=== PATIENT | female | born 1945 | race Caucasian/White ===

== ENCOUNTER 2016-12-21 08:41 | Observation (INO) | payer OTHER ==
[~2016-12-21] VITALS: Ht 144.8 cm; Wt 72.6 kg
--- NOTE | 2016-12-21 08:48 | NUR ---
PT KATHRINE C/O LOWER BACK PAIN 05/28. PT STATES THAT SHE WAS DC'D FROM [facility] FOR PNA/SEPSIS AND HIGH BLOOD SUGAR.
--- NOTE | 2016-12-21 08:54 | NUR ---
FAMILY AT BEDSIDE
--- NOTE | 2016-12-21 08:58 | ED NECK/BACK PAIN COMPLAINT ---
History of Present Illness General Chief Complaint: Low Back Pain/Injury Stated Complaint: LOWER BACK PAIN Source: patient, family Exam Limitations: no limitations Vital Signs & Intake/Output Vital Signs & Intake/Output Vital Signs Date Time Temp Pulse Resp B/P B/P Pulse O2 O2 Flow FiO2 Mean Ox Delivery Rate 12/21 1116 66 16 137/65 3 Room Air 12/21 0924 97.0 84 148/90 12/21 0856 Room Air 12/21 0846 98.2 65 16 134/65 97 Allergies Coded Allergies: No Known Allergies (12/21/16) Reconcile Medications Amlodipine Besylate 10 MG TABLET 1 TAB PO DAILY HEART (Reported) Aspirin (Aspirin*) 81 MG TAB.CHEW 1 TAB PO DAILY HEART HEALTH (Reported) Atorvastatin Calcium 40 MG TABLET 1 TAB PO QPM CHOLESTEROL (Reported) Brimonidine Tartrate (Alphagan P) 0.1 % DROPS 1 GTT OPH BID EYE (Reported) Carvedilol 12.5 MG TABLET 1 TAB PO BID HEART (Reported) Famotidine 40 MG TABLET 1 TAB PO DAILY GI (Reported) Fenofibrate Nanocrystallized (Fenofibrate) 48 MG TABLET 1 TAB PO DAILY CHOLESTEROL (Reported) Ferrous Sulfate 325 MG (65 MG IRON) TABLET 1 TAB PO BID SUPPLEMENT (Reported) Fluconazole (Diflucan) 50 MG TABLET 1 TAB PO DAILY ANTIBIOTIC, INFECTION ( Reported) Insulin Aspart, Recombinant (Novolog Flexpen) 100 UNIT/ML INSULN.PEN 3 U SC TID DIABETES (Reported) Insulin Detemir (Levemir Flextouch) 100 UNIT/ML (3 ML) INSULN.PEN 14 U SC QPM DIABETES (Reported) Multivit-Min/FA/Lycopen/Lutein (Centrum Silver Tablet) 0.4 MG-300 MCG-250 MCG TABLET 1 TAB PO DAILY VITAMIN SUPPORT (Reported) Tramadol HCl 50 MG TABLET 1 TAB PO Q8P PRN Severe pain Trazodone HCl 50 MG TABLET 1 TAB PO QPM SLEEP (Reported) Triage Note: PT BIBA C/O LOWER BACK PAIN 10/. PT STATES THAT SHE WAS DC'D FROM [facility]. FOR PNA/SEPSIS AND HIGH BLOOD SUGAR. Triage Nurses Notes Reviewed? yes Onset: Abrupt Duration: hour(s): (1) HPI: 71 year old female with recent discharge from [facility] on Saturday after pneumonia and sepsis who presents with 10/10 back pain from this morning. Her son states she usually can pull herself up and he helps her to the walker but today she couldn't move without severe pain. No trauma. Pain is in the lumbar spine associated with muscle spasm. No weakness or numbness in the extremities. No fever or chills. She was doing well on Saturday after discharge until today. Past History Travel History Traveled to [place] past 21 day No Medical History Any Pertinent Medical History? see below for history Cardiovascular: CHF Respiratory: pneumonia Gastrointestinal: GERD Renal: ATN Endocrine: diabetes Surgical History Surgical History: non-contributory Family History Hx Contributory? No Review of Systems Review of Systems Constitutional: Reports: weakness. Denies: chills, fever. Eyes: Reports: no symptoms. Ears, Nose, Throat, Mouth: Reports: no symptoms. Respiratory: Denies: cough, short of breath, stridor. Cardiovascular: Denies: chest pain. Gastrointestinal/Abdominal: Reports: no symptoms. Musculoskeletal: Reports: back pain, muscle pain, muscle stiffness. Skin: Reports: no symptoms. Neurological/Psychological: Denies: anxiety. All Other Systems: Reviewed and Negative Physical Exam Physical Exam General Appearance: well developed/nourished, alert, awake, anxious, mild distress, moderate distress Head: atraumatic, normal appearance Eyes: Bilateral: normal appearance, PERRL, EOMI. Ears, Nose, Throat, Mouth: hearing grossly normal, moist mucous membrane Neck: normal inspection, supple, full range of motion Respiratory: normal breath sounds, chest non-tender, no respiratory distress Cardiovascular: regular rate/rhythm Peripheral Pulses: 2+ radial (R), 2+ radial (L) Gastrointestinal: normal bowel sounds, soft, non-tender Extremities: non-tender, NORMAL PASSIVE RANGE OF MOTION Straight Leg Raising: Right: Pain at ____ degrees (10). Left: Pain at ____ degrees (10). Neurologic/Psych: awake, alert, oriented x 3 Skin: intact, normal color, cyanosis Progress Differential Diagnosis: cauda equina syn, herniated disc, myofascial strain, pyelo/UTI, sciatica, spinal cord inj, T/L spine injury, vertebral abscess Plan of Care: Orders Procedure Date/time Status Place in observation 12/21 1304 Active Straight Cath 12/21 1043 Active URINALYSIS 05/05 0905 Complete COMPREHENSIVE METABOLIC PANEL 12/21 904 Complete CBC WITHOUT DIFFERENTIAL 12/21 904 Complete EKG 12/21 904 Active Laboratory Tests 12/21/16 1131: Urinalysis MOD H, Urine Color YEL, Urine Clarity HAZY H, Urine pH 6.0, Ur Specific [place] 1.020, Urine Protein 100 H, Urine Ketones NEG, Urine Nitrite NEG, Urine Bilirubin NEG, Urine Urobilinogen 0.2, Ur Leukocyte Esterase NEG, Ur Microscopic SEDIMENT EXAMINED, Urine RBC 1-3, Urine WBC 3-5 H, Urine Bacteria MOD H, Urine Hemoglobin TRACE-INTACT, Urine Glucose 100 H 12/21/16 0937: Anion Gap 13, Estimated GFR 23 L, BUN/Creatinine Ratio 24.3, Glucose 154 H, Calcium 8.8, Total Bilirubin 0.4, AST 19, ALT 37, Alkaline Phosphatase 74, Total Protein 6.2 L, Albumin 3.1 L, Globulin 3.1, Albumin/Globulin Ratio 1.0 L, CBC w Diff NO MAN DIFF REQ, RBC 3.69 L, MCV 83.0, MCH 27.9, RDW 16.2 H, MPV 8.8, Gran % 81.9 H, Lymphocytes % 9.1 L, Monocytes % 8.0, Eosinophils % 0.7, Basophils % 0.3, Absolute Granulocytes 6.4, Absolute Lymphocytes 0.7 L, Absolute Monocytes 0.6, Absolute Eosinophils 0.1, Absolute Basophils 0, PUBS MCHC 33.6 Patient with intractable pain despite iv morphine and valium administration. CT scan does not show any acute findings but do show severe degenerative changes. She is unable to bear weight at this point and will require physical therapy and short term rehab. (KEO BAR,DEMARIO) Diagnostic Imaging: Viewed by Me: CT Scan. Discussed w/RAD: CT Scan. Radiology Impression: PATIENT: SHAZIA BEAR PRESENT AGE: 71 PATIENT ACCOUNT NO: [id number] : 44 LOCATION: [facility] ORDERING PHYSICIAN: DEMARIO CROWLEY MD SERVICE DATE: 12/21/16 EXAM TYPE: CAT - CT LUMB SPINE WO IV CONTRAST EXAMINATION: CT LUMBAR SPINE WITHOUT CONTRAST CLINICAL INFORMATION: Severe low back pain, sudden onset. COMPARISON: None. TECHNIQUE: Helical non-contrast CT images were obtained through the lumbar spine and 1.25 and 2.5 mm axial reconstructions were reviewed along with sagittal and coronal MPRs. DLP: 962.6 mGy-cm FINDINGS: There is a rotatory levoscoliosis with the apex at L3-L4. There is a grade 2, 8 mm anterolisthesis of L5 on S1 with marked narrowing of intervertebral disc height at this level. There is a 5 mm grade 1 anterolisthesis of L4 on L5 with marked narrowing of intervertebral disc height with vacuum changes. There is a mild retrolisthesis of L1 on L2. Intervertebral disc heights are narrowed at T10-T11 and T11-T12 and there may be partial fusion of the vertebral bodies at these levels. There is narrowing of intervertebral disc height with severe degenerative endplate contour changes and sclerosis at L1-L2. Narrowing of intervertebral disc height is also demonstrated posteriorly at L2-L3 with milder endplate changes. There is also narrowing of intervertebral disc height at L3-L4 and L4-L5 with vacuum changes. There are no acute compression fractures. Overall, bone mineralization is diffusely decreased. There are moderate atheromatous calcifications of the aorta. There is no aortic aneurysm. The sacroiliac joints appear intact. SPINAL LEVELS: T11-T12: As described above there is partial fusion of the vertebral bodies, particularly toward the left. There is no central stenosis. There is mild left foraminal narrowing. T12-L1: There is mild facet arthropathy. There is a posterior disc osteophyte complex. There is no central stenosis. L1-L2: There is a prominent posterior disc osteophyte complex extending into the bilateral neural foramina. There is mild narrowing of the spinal canal from the retrolisthesis. There is mild bilateral foraminal narrowing. There is moderate facet arthropathy. L2-L3: There is kkvs-ip-ygpwmfcc facet arthropathy with ligamenta flava hypertrophy. There is a broad-based posterior disc protrusion extending into the neural foramina bilaterally. There is mild central stenosis. L3-L4: There is a diffuse disc bulge which is more prominent laterally on the left. There is bilateral facet arthropathy. There is ligamenta flava hypertrophy. There is likely impingement on the extraforaminal left L3 nerve root. There is mild central stenosis. L4-L5: There is severe bilateral facet arthropathy, worse on the left. There is narrowing of the subarticular recesses bilaterally. There is unroofing of the disc as a result of the anterolisthesis and there are bilateral foraminal disc protrusions with impingement on the exiting L4 nerve roots. There is npauiguf-vk-cxtifm central stenosis. L5-S1: There is severe bilateral facet arthropathic changes. There are no partes interarticulares defects. There is unroofing of the disc as a result of the anterolisthesis and there is left greater than right foraminal narrowing with impingement on the exiting L5 nerve roots. There is no central stenosis. IMPRESSION: 1. There is severe spondylosis at L1-L2 with endplate contour changes and sclerosis. The findings are most consistent with severe degenerative spondylosis. 2. There are anterolistheses of L4 on L5 and L5 on S1 with bilateral foraminal narrowing at both these levels with exiting nerve root impingement. 3. There is gtuggwqh-ym-ealnts central stenosis at L4-L5. 4. There are milder changes at multiple other levels as described above. There is a rotatory levoscoliosis. 5. There are no acute fractures. DICTATED BY: ASHISH GREEN MD DATE/TIME DICTATED:12/21/161034 SALES OPERATIONS SPECIALIST:LEONARDO DATE/TIME TRANSCRIBED:12/21/161034 CONFIDENTIAL, DO NOT COPY WITHOUT APPROPRIATE AUTHORIZATION. <Electronically signed in Other Vendor System> SIGNED BY: ASHISH GREEN MD 12/21/16 1118 Initial ED EKG: NSR Departure Departure Time of Disposition: 1310 Disposition: STILL A PATIENT Condition: Stable Clinical Impression Primary Impression: Intractable low back pain Referrals: UNKNOWN Departure Forms: Customer Survey General Discharge Information Prescriptions: Current Visit Scripts Tramadol HCl 1 TAB PO Q8P PRN Severe pain #15 TAB Observation Note Spoke With: ARBEN WHITMAN MD Physician Advisor Notified: BYRCE BAR,WEI Parekh Place Patient In: Non-ED OBS Care Area Rationale for Observation: My rational for observation is as follows [IV PAIN CONTROL, PHYSICAL THERAPY EVALUATION, MONITOR RENAL FUNCTION, MONITOR H/H, OBTAIN OLD RECORDS FROM [facility], POSSIBLE SHORT TERM REHAB PLACEMENT].
--- NOTE | 2016-12-21 09:00 | NUR ---
DR CROWLEY AT BEDSIDE FOR EVALUATION
--- NOTE | 2016-12-21 09:15 | NUR ---
PT CHANGED INTO GOWN AND CLEANED.. PT HAD A LARGE BM WITH SOFT BROWN STOOL
--- NOTE | 2016-12-21 09:40 | NUR ---
IV EST #20RH PT MEDICATED FOR PAIN 05/28 PER [facility] DRAWN ANED SENT TO THE LAB [facility]
[2016-12-21 09:44] LABS: ABSOLUTE BASOPHIL COUNT 0 /CUMM (0.0-0.2); ABSOLUTE EOSINOPHIL COUNT 0.1 /CUMM (0.0-0.7); ABSOLUTE GRANULOCYTE CT 6.4 /CUMM (1.4-6.5); ABSOLUTE LYMPH COUNT 0.7 /CUMM (1.2-3.4); ABSOLUTE MONOCYTE COUNT 0.6 /CUMM (0.10-0.60); BASOPHIL % 0.3 % (0.0-2.0); EOSINOPHIL % 0.7 % (0-5); GRANULOCYTE % 81.9 % (42.2-75.2); HEMATOCRIT 30.6 % (37-47); MEAN CORPUSCULAR HGB 27.9 PG (27.0-31.0); MEAN CORPUSCULAR HGB CONC 33.6 G/DL (33.0-37.0); MEAN PLATELET VOLUME 8.8 FL (7.4-10.4); PLATELET COUNT 210 /CUMM (130-400); RBC DISTRIBUTION WIDTH 16.2 % (11.5-14.5); RED BLOOD CELL CT 3.69 /CUMM (4.20-5.40); WHITE BLOOD CELL COUNT 7.9 /CUMM (4.8-10.8)
[2016-12-21] MEDS ORDERED: AMLODIPINE BESY10 M1 PO (09:44)
[2016-12-21] MEDS ORDERED: CARVEDILOL12.5 M1 PO (09:45)
[2016-12-21] MEDS ORDERED: FAMOTIDINE40 M1 PO (09:45)
[2016-12-21] MEDS ORDERED: DIFLUCAN50 MG PO (09:46)
[2016-12-21] MEDS ORDERED: TRAZODONE HCL50 M1 PO (09:47)
[2016-12-21] MEDS ORDERED: NOVOLOG FL100 UNIT/1 SC (09:47)
[2016-12-21] MEDS ORDERED: LEVEMIR FL100 UNIT/1 SC (09:48)
[2016-12-21] MEDS ORDERED: ALPHAGAN P5 M1 OPH (09:48)
[2016-12-21] MEDS ORDERED: ASPIRIN81 M4 PO (09:48)
[2016-12-21] MEDS ORDERED: FENOFIBRATE48 M1 PO (09:49)
[2016-12-21] MEDS ORDERED: ATORVASTATIN CA40 M1 PO (09:49)
[2016-12-21] MEDS ORDERED: CENTRUM SILVER1 EAC3 PO (09:49)
[2016-12-21] MEDS ORDERED: FERROUS SULFAT325 M3 PO (09:50)
--- NOTE | 2016-12-21 11:11 | NUR ---
FAMILY AT BEDSIDE
--- NOTE | 2016-12-21 11:11 | NUR ---
PT MEDICATED PER [facility] WITH VALIUM AND FLUIDS RUNNING PER [facility]
--- NOTE | 2016-12-21 11:18 | CT SCAN REPORT ---
EXAMINATION: CT LUMBAR SPINE WITHOUT CONTRAST CLINICAL INFORMATION: Severe low back pain, sudden onset. COMPARISON: None. TECHNIQUE: Helical non-contrast CT images were obtained through the lumbar spine and 1.25 and 2.5 mm axial reconstructions were reviewed along with sagittal and coronal MPRs. DLP: 962.6 mGy-cm FINDINGS: There is a rotatory levoscoliosis with the apex at L3-L4. There is a grade 2, 8 mm anterolisthesis of L5 on S1 with marked narrowing of intervertebral disc height at this level. There is a 5 mm grade 1 anterolisthesis of L4 on L5 with marked narrowing of intervertebral disc height with vacuum changes. There is a mild retrolisthesis of L1 on L2. Intervertebral disc heights are narrowed at T10-T11 and T11-T12 and there may be partial fusion of the vertebral bodies at these levels. There is narrowing of intervertebral disc height with severe degenerative endplate contour changes and sclerosis at L1-L2. Narrowing of intervertebral disc height is also demonstrated posteriorly at L2-L3 with milder endplate changes. There is also narrowing of intervertebral disc height at L3-L4 and L4-L5 with vacuum changes. There are no acute compression fractures. Overall, bone mineralization is diffusely decreased. There are moderate atheromatous calcifications of the aorta. There is no aortic aneurysm. The sacroiliac joints appear intact. SPINAL LEVELS: T11-T12: As described above there is partial fusion of the vertebral bodies, particularly toward the left. There is no central stenosis. There is mild left foraminal narrowing. T12-L1: There is mild facet arthropathy. There is a posterior disc osteophyte complex. There is no central stenosis. L1-L2: There is a prominent posterior disc osteophyte complex extending into the bilateral neural foramina. There is mild narrowing of the spinal canal from the retrolisthesis. There is mild bilateral foraminal narrowing. There is moderate facet arthropathy. L2-L3: There is sede-ye-yrkaqhcf facet arthropathy with ligamenta flava hypertrophy. There is a broad-based posterior disc protrusion extending into the neural foramina bilaterally. There is mild central stenosis. L3-L4: There is a diffuse disc bulge which is more prominent laterally on the left. There is bilateral facet arthropathy. There is ligamenta flava hypertrophy. There is likely impingement on the extraforaminal left L3 nerve root. There is mild central stenosis. L4-L5: There is severe bilateral facet arthropathy, worse on the left. There is narrowing of the subarticular recesses bilaterally. There is unroofing of the disc as a result of the anterolisthesis and there are bilateral foraminal disc protrusions with impingement on the exiting L4 nerve roots. There is gmlbimfi-md-apcfvg central stenosis. L5-S1: There is severe bilateral facet arthropathic changes. There are no partes interarticulares defects. There is unroofing of the disc as a result of the anterolisthesis and there is left greater than right foraminal narrowing with impingement on the exiting L5 nerve roots. There is no central stenosis. IMPRESSION: 1. There is severe spondylosis at L1-L2 with endplate contour changes and sclerosis. The findings are most consistent with severe degenerative spondylosis. 2. There are anterolistheses of L4 on L5 and L5 on S1 with bilateral foraminal narrowing at both these levels with exiting nerve root impingement. 3. There is dprukqaq-ap-zctkpe central stenosis at L4-L5. 4. There are milder changes at multiple other levels as described above. There is a rotatory levoscoliosis. 5. There are no acute fractures.
--- NOTE | 2016-12-21 11:29 | NUR ---
PT STRATIGHT CATH FOR URINE SAMPLE OUT PUT 200
--- NOTE | 2016-12-21 13:06 | NUR ---
CASE MANAGEMENT AT BEDSIDE
--- NOTE | 2016-12-21 13:40 | History & Physical ---
RJ NUNEZ MD 12/21/16 9910: General Information and HPI MD Statement: I have seen and personally examined GENA BEAR and documented this H&P. The patient is a 71 year old F who presented with a patient stated chief complaint of [intractable back pain]. Source of Information: patient History of Present Illness: This is Gena Bear a 71 y.o. female with history of DCHF, diabetes mellitus, dumping syndrome, gastroparesis, GERD, hyperlipidemia, hypertension, macular degeneration, pulmonary hypertension,(RVP of 36 mm hG) Hamilton esophagus, upper GI bleed, anemia last admitted April of 2016 for GI bleed and then again admitted at [facility] from December 07 till 12/18/2016 for community-acquired pneumonia, sepsis, encephalopathy, fungal UTI (with the tapering dose of fluconazole left with 4 more days that is till 12/23/2016 ). The patient was discharged home on 12/18/2016. The patient was doing fine until last night when she started having persistent intractable back pain which started suddenly. The patient denies any history of trauma fall or any weakness. She does not exhibit any leg weakness. At baseline she ambulates with a walker. The patient describes the pain as 10 on 10, associated with muscle spasms which is intermittent, no complaints of urinary or stool incontinence. She does appreciate bilateral lower extremity numbness and tingling for which she attributes to her diabetic neuropathy. After reviewing the patient's discharge summary at the [facility] and was found that the patient had a baseline creatinine of 2.23 secondary to ATN at the time of discharge(with the peak of creatinine of 5.56 during admission), the patient was discharged with instructions to take bicarbonate pills and to follow with Dr. Rodriguez in 1 week. The patient is left with 5 days of fluconazole therapy(last dated 12/23/2016) for her fungal UTI The patient is currently residing with her son who lives in [place] and today the patient was brought to the emergency emergency department [facility]. Regarding her rest of the care and her primary care physician she has always been worked up at [facility]. Allergies/Medications Allergies: Coded Allergies: No Known Allergies (12/21/16) Home Med list Amlodipine Besylate 10 MG TABLET 1 TAB PO DAILY HEART (Reported) Aspirin (Aspirin*) 81 MG TAB.CHEW 1 TAB PO DAILY HEART HEALTH (Reported) Atorvastatin Calcium 40 MG TABLET 1 TAB PO QPM CHOLESTEROL (Reported) Brimonidine Tartrate (Alphagan P) 0.1 % DROPS 1 GTT OPH BID EYE (Reported) Carvedilol 12.5 MG TABLET 1 TAB PO BID HEART (Reported) Famotidine 40 MG TABLET 1 TAB PO DAILY GI (Reported) Fenofibrate Nanocrystallized (Fenofibrate) 48 MG TABLET 1 TAB PO DAILY CHOLESTEROL (Reported) Ferrous Sulfate 325 MG (65 MG IRON) TABLET 1 TAB PO BID SUPPLEMENT (Reported) Fluconazole (Diflucan) 50 MG TABLET 1 TAB PO DAILY ANTIBIOTIC, INFECTION ( Reported) Insulin Aspart, Recombinant (Novolog Flexpen) 100 UNIT/ML INSULN.PEN 3 U SC TID DIABETES (Reported) Insulin Detemir (Levemir Flextouch) 100 UNIT/ML (3 ML) INSULN.PEN 14 U SC QPM DIABETES (Reported) Multivit-Min/FA/Lycopen/Lutein (Centrum Silver Tablet) 0.4 MG-300 MCG-250 MCG TABLET 1 TAB PO DAILY VITAMIN SUPPORT (Reported) Trazodone HCl 50 MG TABLET 1 TAB PO QPM SLEEP (Reported) Past History Travel History Traveled to [place] past 21 day No Medical History Neurological: NONE Cardiovascular: CHF Gastrointestinal: GERD, upper GI bleed Renal: acute tubular necrosis Psychiatric: NONE Endocrine: diabetes Surgical History Surgical History: none Past Family/Social History Family History Relations & Conditions if any MOTHER Relation not specified for: FH: diabetes mellitus FH: hypertension Psychosocial History Where do you live? Home Who Do You Live With? child Services at Home: None Primary Language: Serbian Smoking Status: Never Smoked ETOH Use: denies use Review of Systems Review of Systems Constitutional: Reports: see HPI. EENTM: Reports: see HPI. Cardiovascular: Reports: see HPI. Respiratory: Reports: see HPI. GI: Reports: see HPI. Denies: constipation, diarrhea, distention, bowel incontinence. Genitourinary: Denies: discharge, dysuria, frequency, hematuria. Musculoskeletal: Denies: back pain, gout, joint pain. Skin: Denies: change in skin color, change in hair/nails, dryness, erythema. Neurological/Psychological: Denies: cognitive dysfunction, confusion, depressed, dementia, emotional problems, headache. Hematologic/Endocrine: Denies: bruising, bleeding. Exam & Diagnostic Data Last 24 Hrs of Vital Signs/I&O Vital Signs Date Time Temp Pulse Resp B/P B/P Pulse O2 O2 Flow FiO2 Mean Ox Delivery Rate 12/21 1452 97.2 70 20 131/62 97 Room Air 12/21 1116 66 16 137/65 3 Room Air 12/21 0924 97.0 84 148/90 12/21 0856 Room Air 12/21 0846 98.2 65 16 134/65 97 Intake & Output 12/21 1600 12/21 0800 05 0000 Intake Total 500 Output Total 200 Balance 300 Intake, IV 500 Output, Urine 200 Patient 160 lb Weight Weight Reported by Patient Measurement Method Physical Exam General Appearance Alert, Oriented X3, Moderate Distress Skin No Rashes, No Breakdown Skin Temp/Moisture Exam: Warm/Dry Sepsis Skin Exam (color): Normal for Ethnicity HEENT Atraumatic Neck Supple Lymphatic Axillary nl, Cervical nl Cardiovascular Normal S1, Normal S2, No Murmurs Lungs Clear to Auscultation, Normal Air Movement Abdomen Soft, No Tenderness Neurological Normal Speech, Strength at 5/5 X4 Ext, Normal Tone, Sensation Intact Extremities No Cyanosis, No Edema Assessment/Plan Assessment: This is Gena Bear a 71 y.o. female with history of DCHF, diabetes mellitus, dumping syndrome, gastroparesis, GERD, hyperlipidemia, hypertension, macular degeneration, pulmonary hypertension,(RVP of 36 mm hG) Hamilton esophagus, upper GI bleed, anemia who presents to the [facility] with persistent intractable low back pain that started 12 hours back in the absence of any trauma or mechanical fall. Vitals: 137/65, 66,16,95 % r.A,Afebrile Labs: 10.9,WBC of 7.9,na,143,K 4.2,Cl 110,Creatinie 2.1(baseline Creatniine 2.2),GFR 51,BUN 51 EKG showed normal sinus rhythm Lumbar spine did not show any acute changes: And showed 1. Severe spondylosis at L1-L2 2. Bilateral foraminotomy narrowing at L4-L5 and S1 3. Moderate to severe central stenosis at L4-L5 4. No acute fractures Assessment 1. Intractable back pain: Likelihood of back pain is most likely muscular skeletal in origin with muscle spasms., Even though there was no evidence of any trauma. But considering the patient recently recovered from an acute infection and encephalopathy the possibility of ostium mellitus to the vertebra can also be considered even though the possibility is usually low considering no white count and no fever. 2. History of pulmonary hypertension with right ventricular pressure 38 Bre meter of mercury on the last transthoracic echocardiogram in April 2016 3. History of heart failure with preserved ejection fraction, stage I diastolic dysfunction with ejection pressure 60% on echocardiogram in April 2016 4. History of gerd 5. History of esophagitis and GI bleed and valencia occult blood positive positive stools 6. History of diabetes mellitus with last hemoglobin A1c of 15. currently on insulin therapy 7. History of hypertension 8. History of hyperlipidemia 9. Newly diagnosed ATN, on the last admission at [facility], with the new baseline creatinine of 2.2 and in the setting of positive p-ANCA. The positive p-ANCA found at the [facility] could be a nonspecific finding but considering ATN pausi -immune nephrits would be one of the differentials. This can be worked up as an outpatient Plan Admit the patient to general medicine floor for 23 observation For the back pain we will control with IV Dilaudid 0.5 mg every 4 when necessary and as well as Flexeril for muscle spasm .avoid morphine considering nephrotoxic Physical therapy in the morning We will check blood cultures 2 and urine cultures as mentioned above Check lactic acid levels Nephrology consult in the morning(to be noted that the patient was scheduled and was asked to follow with Dr. Rodriguez in the next week.Will co/w 325 TID bicarbonate pills DVT prophylaxis with subcutaneous heparin Patient is full code Pain pathways Consistent carbohydrate diet NovoLog sliding scale and Levemir for glucose control Continue with other home medications cHECK ESR IN AM Hydrate with 1/2 NS as elevated chloride and Sodium.Switch to D5 1/2 NS in am depending on the electrolytes results in am As Ranked By This Provider Problem List: 1. Intractable low back pain Core Measures/Miscellaneous Acute Coronary Syndrome ACS Diagnosis: No Cerebrovascular Accident CVA/TIA Diagnosis: No Congestive Heart Failure CHF Diagnosis: No Venous Thromboembolism VTE Risk Factors: Acute medical illness, Age > 40 [facility] prophylaxis d/t: No contraindications No VTE Pharm Prophylaxis d/t: No contraindications VTE Diagnosis: No VTE Type: NONE VTE Confirmed by (Test): NONE Severe Sepsis Severe Sepsis Present: No Septic Shock Septic Shock Present: No Miscellaneous Documentation Attending Case Discussed With: ANTONETTE BAR,ARBEN Primary Care Physician: ELSIE PIERRE MD Patient sees these Specialists none Level of Patient Care: General Medicine ENRIQUETA MACHUCA 12/21/16 1515: Attending MD Review Statement Attending Statement Attending MD Statement: examined this patient, discuss w/resident/PA/YOUTUBER, agreed w/resident/PA/YOUTUBER, discussed with family, reviewed EMR data (avail), discussed with nursing, discussed with case mgmt, reviewed images, amended to note Attending Assessment/Plan: patient came with intractable back pain with CT scan shows moderate to severe spinal stenosis. Labs unremarkable except Cr 2.1 recovering from her acute injury recently sustained. Patient admitted to gen/med for pain control, resume home meds. gi/dvt prophyalxis
--- NOTE | 2016-12-21 14:17 | NUR ---
BED ASSIGNMENT [id number]
--- NOTE | 2016-12-21 14:52 | NUR ---
PT MEDICATED WITH IV DILAUDID PER eMAR FOR 10 PAIN. VSS
--- NOTE | 2016-12-21 15:11 | NUR ---
CARE ASSUMED BY THIS RN NOW.
--- NOTE | 2016-12-21 15:16 | NUR ---
REPORT GIVEN TO EDGARDO ALCANTARA
--- NOTE | 2016-12-21 15:17 | NUR ---
DIST BOOKED WITH SHAZIA
--- NOTE | 2016-12-21 15:55 | NUR ---
SPOKE WITH DISTRIBUTION. PT TO BE BROUGHT UP NEXT.
--- NOTE | 2016-12-21 16:40 | NUR ---
PATIENT ARRIVED TO UNIT FROM ER. ADMITTING DX INTRACTABLE BACK PAIN. PATIENT IS ALERT AND ORIENTATED X3. VSS. CARDIOPULMONARY STABLE. C/O LOWER BACK PAIN 5/10. PER PATIENT "BACK ONLY HURTS WHEN BEING MOVED." PATIENT LYING FLAT. INCONTINET OF URINE ON ARRIVAL. GINNY LOWER EXTREMITIES 1+ EDEMA. ORIENTATED TO ROOM AND CALL LIGHT. SON AT BEDSIDE. WILL FOLLOW PLAN OF CARE.
[2016-12-21 16:53] VITALS: BP 126/70
[2016-12-22 06:38] VITALS: BP 146/70
--- NOTE | 2016-12-22 07:57 | PN- Housestaff ---
See Addendum Subjective Follow-up For: back pain Subjective: pt seen today, reports no pain. can probably be discharged today had an extensive discussion with family regarding obs vs admit as family was concerned about the cost they will incur being under obs. pt's son was also demanding that we know exactly why she has the back pain and does not want her to go home until we figure it out. pt and her sister understand that the role of hospitalization is to rule out serious causes and further workup can be done as outpatient. pt would like tramadol to go home with. she does not like percocet. Review of Systems Constitutional: Reports: see HPI. Objective Last 24 Hrs of Vital Signs/I&O Vital Signs Date Time Temp Pulse Resp B/P B/P Pulse O2 O2 Flow FiO2 Mean Ox Delivery Rate 12/22 0837 99.0 66 20 146/70 / 0836 99.0 66 20 146/70 / 0638 99.0 66 20 146/70 97 05/05 2252 98.3 18 94 Room Air 12/21 2205 70 128/64 05/05 1653 98.3 69 20 126/70 94 Room Air 05/05 1452 97.2 70 20 131/62 97 Room Air Intake & Output / 1600 / 0800 05/ 0000 Intake Total 840 1000 Output Total Balance 840 1000 Intake, IV 600 600 Intake, Oral 240 400 Patient 72.575 kg Weight Weight Reported by Patient Measurement Method Physical Exam General Appearance: Alert, Oriented X3, Cooperative, No Acute Distress Cardiovascular: Regular Rate, Normal S1, Normal S2 Lungs: Clear to Auscultation, Normal Air Movement Abdomen: Normal Bowel Sounds, Soft, No Tenderness Neurological: Normal Speech, Strength at 5/5 X4 Ext Current Medications: Current Medications Sig/Nawaf Start time Last Medication Dose Route Stop Time Status Admin Acetaminophen 650 MG Q6P PRN 12/21 1345 AC PO Amlodipine Besylate 10 MG DAILY 12/22 1000 AC 12/22 PO 0837 Aspirin 81 MG DAILY 12/22 1000 AC / PO 0836 Atorvastatin Calcium 40 MG QPM 12/21 2200 AC 12/21 PO 2202 Brimonidine Tartrate 1 GTT BID 12/21 220 AC 12/22 OPH 0836 Carvedilol 12.5 MG BID 12/21 220 AC 12/22 PO 0836 Cyclobenzaprine HCl 10 MG TID PRN 12/21 1400 AC PO Famotidine 20 MG DAILY 12/22 1000 AC 12/22 PO 0837 Fenofibrate 48 MG DAILY 12/22 1000 AC 12/22 PO 0837 Ferrous Sulfate 325 MG BID 12/21 2200 AC 12/22 PO 0837 Fluconazole 50 MG AT BEDTIME 12/21 2200 AC 12/21 PO 05 0000 2202 Heparin Sodium 5,000 UNIT Q8 12/21 220 AC 12/22 (Porcine) SC 0545 Hydromorphone HCl 0 .STK-MED ONE 12/21 1453 DC .ROUTE Hydromorphone HCl 0.5 MG Q4P PRN 12/21 1345 AC 12/21 IV 1451 Insulin Aspart 0 TIDAC 12/21 1700 AC 12/21 SC 1719 Insulin Detemir 14 UNITS AT BEDTIME 12/21 220 AC 12/21 SC 2201 Ketorolac 15 MG Q6P PRN 12/21 1345 DC Tromethamine IV Oxycodone/ 1 TAB Q6P PRN 12/22 0745 AC Acetaminophen PO Patient Medication 1 UNIT ONE NR 12/21 1645 DC Teaching ED 12/21 1700 Sodium Bicarbonate 325 MG TID 12/22 1000 AC 12/22 PO 1104 Sodium Chloride 1,000 ML Q13H 12/21 2145 AC 12/22 IV 12/22 2344 1104 Sodium Chloride 1,000 ML Q13H 12/21 1600 DC 12/21 IV 12/22 1759 1714 Trazodone HCl 50 MG QPM 12/21 220 AC 12/21 PO 2201 Last 24 Hrs of Lab/David Results Last 24 Hrs of Labs/Mics: Laboratory Tests 12/22/16 0655: Anion Gap 12, Estimated GFR 24 L, BUN/Creatinine Ratio 21.5, CBC w Diff NO MAN DIFF REQ, RBC 3.26 L, MCV 83.2, MCH 28.2, RDW 15.5 H, MPV 9.4, Gran % 69.5, Lymphocytes % 17.2 L, Monocytes % 9.4 H, Eosinophils % 2.9, Basophils % 1.0, Absolute Granulocytes 3.8, Absolute Lymphocytes 1.0 L, Absolute Monocytes 0.5, Absolute Eosinophils 0.2, Absolute Basophils 0.1, PUBS MCHC 33.9, ESR Westergren 77 H Microbiology 12/21 1899 BLOOD: Blood Culture - RECD 12/21 1899 BLOOD: Blood Culture - RECD Assessment/Plan Assessment: This is Doris Martinez a 71 y.o. female with history of DCHF, diabetes mellitus, dumping syndrome, gastroparesis, GERD, hyperlipidemia, hypertension, macular degeneration, pulmonary hypertension,(RVP of 36 mm hG) Hamilton esophagus, upper GI bleed, anemia who presents to the [facility] with persistent intractable low back pain that started 12 hours back in the absence of any trauma or mechanical fall. Vitals: 137/65, 66,16,95 % r.A,Afebrile Labs: 10.9,WBC of 7.9,na,143,K 4.2,Cl 110,Creatinie 2.1(baseline Creatniine 2.2),GFR 51,BUN 51 EKG showed normal sinus rhythm Lumbar spine did not show any acute changes: And showed 1. Severe spondylosis at L1-L2 2. Bilateral foraminotomy narrowing at L4-L5 and S1 3. Moderate to severe central stenosis at L4-L5 4. No acute fractures Assessment 1. Intractable back pain: Likelihood of back pain is most likely muscular skeletal in origin with muscle spasms. Even though there was no evidence of any trauma. But considering the patient recently recovered from an acute infection and encephalopathy the possibility of osteomyelitis to the vertebra can also be considered even though the possibility is usually low considering no white count and no fever. 2. History of pulmonary hypertension with right ventricular pressure 38 mm hg on the last transthoracic echocardiogram in April 2016 3. History of heart failure with preserved ejection fraction, stage I diastolic dysfunction with ejection pressure 60% on echocardiogram in April 2016 4. History of gerd 5. History of esophagitis and GI bleed and valencia occult blood positive positive stools 6. History of diabetes mellitus with last hemoglobin A1c of 15. currently on insulin therapy 7. History of hypertension 8. History of hyperlipidemia 9. Newly diagnosed ATN, on the last admission at [facility], with the new baseline creatinine of 2.2 and in the setting of positive p-ANCA. The positive p-ANCA found at the [facility] could be a nonspecific finding but considering ATN pausi -immune nephrits would be one of the differentials. This can be worked up as an outpatient Plan Observe patient for 24 hrs For the back pain we will control with IV Dilaudid 0.5 mg every 4 when necessary and as well as Flexeril for muscle spasm .avoid morphine considering nephrotoxic Physical therapy done We will check blood cultures 2 and urine cultures NovoLog sliding scale and Levemir for glucose control Continue with other home medications DVT prophylaxis with subcutaneous heparin Patient is full code Pain pathways Consistent carbohydrate diet Problem List: 1. Intractable low back pain Pain Ratin Pain Location: none Pain Goal: Remain pain free Pain Plan: dilaudid Tomorrow's Labs & Rationales: none DVT/Prophylaxis: mechanical, pharmacological
[2016-12-22 08:37] VITALS: BP 146/70
[2016-12-22 09:01] LABS: ABSOLUTE BASOPHIL COUNT 0.1 /CUMM (0.0-0.2); ABSOLUTE EOSINOPHIL COUNT 0.2 /CUMM (0.0-0.7); ABSOLUTE GRANULOCYTE CT 3.8 /CUMM (1.4-6.5); ABSOLUTE MONOCYTE COUNT 0.5 /CUMM (0.10-0.60); EOSINOPHIL % 2.9 % (0-5); GRANULOCYTE % 69.5 % (42.2-75.2); HEMATOCRIT 27.2 % (37-47); MEAN CORPUSCULAR HGB 28.2 PG (27.0-31.0); MEAN CORPUSCULAR HGB CONC 33.9 G/DL (33.0-37.0); MEAN CORPUSCULAR VOLUME 83.2 FL (81.0-99.0); MEAN PLATELET VOLUME 9.4 FL (7.4-10.4); PLATELET COUNT 181 /CUMM (130-400); RBC DISTRIBUTION WIDTH 15.5 % (11.5-14.5); RED BLOOD CELL CT 3.26 /CUMM (4.20-5.40); WHITE BLOOD CELL COUNT 5.5 /CUMM (4.8-10.8)
[2016-12-22] MEDS ORDERED: TRAMADOL HCL50 M1 PO (12:40)
--- NOTE | 2016-12-22 12:43 | Patient Discharge Instructions ---
Discharge Instructions General Discharge Information You were seen/treated for: Back pain Special Instructions: Please follow up with PCP in 1 week. Diet Continue normal diet: Yes Recommended Diet: Diabetic Activity Full Activity/No Limits: Yes Acute Coronary Syndrome Inclusion Criteria At DC or during hospital stay patient has or had the following: ACS DIAGNOSIS No Discharge Core Measures Meds if any: Prescribed or Continued at Discharge Meds if any: NOT Prescribed or Continued at Discharge Congestive Heart Failure Inclusion Criteria At DC or during hospital stay patient has or had the following: CHF DIAGNOSIS No Discharge Core Measures Meds if any: Prescribed or Continued at Discharge Meds if any: NOT Prescribed or Continued at Discharge Cerebrovascular accident Inclusion Criteria At DC or during hospital stay patient has or had the following: CVA/TIA Diagnosis No Discharge Core Measures Meds if any: Prescribed or Continued at Discharge Meds if any: NOT Prescribed or Continued at Discharge Venous thromboembolism Inclusion Criteria VTE Diagnosis No VTE Type NONE VTE Confirmed by (Test) NONE Discharge Core Measures - Per Current guidelines, there needs to be overlap - treatment for the first 5 days of Warfarin therapy. - If discharged on Warfarin prior to 5 days of - overlap therapy, the patient will need to be - assessed for post discharge needs including - *Post discharge parental anticoagulation - *Warfarin and/or parental anticoagulation education - *Follow up date to check INR post discharge At least 5 days overlap therapy as Inpatient No Meds if any: Prescribed or Continued at Discharge Note: Overlap Therapy is Warfarin and Anticoagulant Meds if any: NOT Prescribed or Continued at Discharge
== END 2016-12-22 14:47 ==
LOC: ERH 08:41 → ERHI 13:04 → ENRESERV 14:14 → 2NB 15:21 → ENPENDDIS 12-22 13:30 → 2NB 12-22 14:47
PROVIDERS: Emergency Medicine; Internal Medicine Nephrology; ADMIT Internal Medicine
DX: M54.5 Low back pain (principal); N17.0 Acute kidney failure with tubular necrosis; K91.1 Postgastric surgery syndromes; K31.84 Gastroparesis; K21.9 Gastro-esophageal reflux disease without esophagitis; E78.5 Hyperlipidemia, unspecified; I11.0 Hypertensive heart disease with heart failure; I50.32 Chronic diastolic (congestive) heart failure; K22.70 Barrett's esophagus without dysplasia; H35.30 Unspecified macular degeneration; I27.2 Other secondary pulmonary hypertension; D64.9 Anemia, unspecified
CPT/HCPCS: 6040; 36415; 81001; 82436; 87040; 87086; 93005; 93010; 96374; 96375; 96376; 97116-GP; 97161-GP; 97530-GP; G0378; J1644; J3360; J3490; J7040

== ENCOUNTER 2017-01-26 20:44 | Emergency (ER) | payer OTHER ==
[~2017-01-26] VITALS: Ht 162.6 cm; Wt 99.8 kg
[~2017-01-26 20:44] MED LIST: ALPHAGAN P5 M1 OPH; AMLODIPINE BESY10 M1 PO; ASPIRIN81 M4 PO; ATORVASTATIN CA40 M1 PO; CARVEDILOL12.5 M1 PO; CENTRUM SILVER1 EAC3 PO; DIFLUCAN50 MG PO; FAMOTIDINE40 M1 PO; FENOFIBRATE48 M1 PO; FERROUS SULFAT325 M3 PO; LEVEMIR FL100 UNIT/1 SC; NOVOLOG FL100 UNIT/1 SC; TRAMADOL HCL50 M1 PO; TRAZODONE HCL50 M1 PO
--- NOTE | 2017-01-26 21:03 | ED AMS/SEIZURE/WEAK/DIZZY ---
History of Present Illness General Chief Complaint: General Adult Stated Complaint: HYPOGLYCEMIA Source: patient, family, EMS Exam Limitations: poor historian (no recall of episode) Vital Signs & Intake/Output Vital Signs & Intake/Output Vital Signs Date Time Temp Pulse Resp B/P B/P Pulse O2 O2 Flow FiO2 Mean Ox Delivery Rate 01/26 2330 97.3 68 20 143/72 97 Room Air 01/269 98.2 75 19 177/84 96 Room Air ED Intake and Output 01/27 0000 01/26 1200 Intake Total Output Total Balance Patient 220 lb Weight Weight Estimated Measurement Method Allergies Coded Allergies: No Known Allergies (12/21/16) Reconcile Medications Amlodipine Besylate 10 MG TABLET 1 TAB PO DAILY HEART (Reported) Aspirin (Aspirin*) 81 MG TAB.CHEW 1 TAB PO DAILY HEART HEALTH (Reported) Atorvastatin Calcium 40 MG TABLET 1 TAB PO QPM CHOLESTEROL (Reported) Brimonidine Tartrate (Alphagan P) 0.1 % DROPS 1 GTT OPH BID EYE (Reported) Carvedilol 12.5 MG TABLET 1 TAB PO BID HEART (Reported) Famotidine 40 MG TABLET 1 TAB PO DAILY GI (Reported) Fenofibrate Nanocrystallized (Fenofibrate) 48 MG TABLET 1 TAB PO DAILY CHOLESTEROL (Reported) Ferrous Sulfate 325 MG (65 MG IRON) TABLET 1 TAB PO BID SUPPLEMENT (Reported) Fluconazole (Diflucan) 50 MG TABLET 1 TAB PO DAILY ANTIBIOTIC, INFECTION ( Reported) Insulin Aspart, Recombinant (Novolog Flexpen) 100 UNIT/ML INSULN.PEN 3 U SC TID DIABETES (Reported) Insulin Detemir (Levemir Flextouch) 100 UNIT/ML (3 ML) INSULN.PEN 14 U SC QPM DIABETES (Reported) Multivit-Min/FA/Lycopen/Lutein (Centrum Silver Tablet) 0.4 MG-300 MCG-250 MCG TABLET 1 TAB PO DAILY VITAMIN SUPPORT (Reported) Tramadol HCl 50 MG TABLET 1 TAB PO Q8P PRN Severe pain Trazodone HCl 50 MG TABLET 1 TAB PO QPM SLEEP (Reported) Triage Note: PT BIBA WITH HYPGLYCEMIC EPISODE. PER PT SON PT WAS WALKING AND TALKING PER BASELINE, PT THEN WAS LEFT FOR 5 MINUTES AND WAS THEN FOUND UNRESPONSIVE. PT SON CHECKED PT BG AND WAS 22. UPON EMS ARRIVAL PT BG WAS 16. IV EST #20 IN LW BY EMS, 25MG DEXTROSE INITATED AND ALMOST COMPLETED AT TIME OF ARRIVAL, PT BG FOR EMS THEN WENT UP TO 90, THEN 70. BG ON ARRIVAL 103. AT BEDSIDE FOR PT EVAL. Triage Nurses Notes Reviewed? yes HPI: Patient presents for evaluation of severe hypoglycemia. The patient herself was unable to provide history as she has virtually no recall of the episode. According to her son, the patient was last seen about 1:30 in the afternoon. He and his girlfriend went out and upon their arrival at about 5:30 to 6:00 this evening, patient seemed well although perhaps a little tired. Shortly thereafter she was found passed out in a seated position. Patient's son checked a fingerstick blood sugar and found it was 22. He then activated 911. Past History Medical History Any Pertinent Medical History? 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 No Review of Systems Review of Systems Constitutional: Reports: no symptoms. EENTM: Reports: no symptoms. Respiratory: Reports: no symptoms. Cardiovascular: Reports: no symptoms. GI: Reports: no symptoms. Genitourinary: Reports: no symptoms. Musculoskeletal: Reports: no symptoms. Skin: Reports: no symptoms. Neurological/Psychological: Reports: see HPI. Hematologic/Endocrine: Reports: no symptoms. Immunologic/Allergic: Reports: no symptoms. All Other Systems: Reviewed and Negative Physical Exam Physical Exam General Appearance: see below Comments: Gen.: Well-nourished, well-developed, no acute respiratory distress. Head: Normocephalic, atraumatic. Eyes: Normal inspection bilaterally Ears: Normal inspection bilaterally Nose: Normal inspection Throat/mouth : Moist mucosa Neck: Supple, full range of motion, no goiter Heart: Regular rate and rhythm, no murmurs rubs or gallops Lungs: Clear to auscultation bilaterally with normal air entry Chest: Nontender Back: Normal range of motion Abdomen: Soft, nontender, nondistended, normal bowel sounds Extremities: Normal range of motion grossly, equal radial pulses, no cyanosis clubbing or edema Neurologic: Cranial nerves grossly intact, speech is slightly dysarthric secondary to multiple missing teeth, patient is answering questions appropriately however. Skin: warm and dry Psychiatric: Calm, cooperative, no apparent delusions or hallucinations Core Measures ACS in differential dx? No CVA/TIA Diagnosis: No Severe Sepsis Present: No Septic Shock Present: No Progress Differential Diagnosis: insulin induced hypoglycemia, renal disease Plan of Care: Orders Procedure Date/time Status Regular Diet 01/27 B Active URINALYSIS 01/26 2215 Complete FingerStick- Glucose 01/26 2200 Active CBC WITHOUT DIFFERENTIAL 01/26 2103 Complete BASIC METABOLIC PANEL 01/26 2103 Complete Current Medications Sig/Nawaf Start time Last Medication Dose Stop Time Status Admin Ciprofloxacin 500 MG ONCE ONE 01/27 30 UNVr (Cipro) 01/27 31 Laboratory Tests 01/26/17 2300: Anion Gap 8, Estimated GFR 40 L, BUN/Creatinine Ratio 27.7 H, Glucose 146 H, Calcium 9.0, CBC w Diff NO MAN DIFF REQ, RBC 3.22 L, MCV 84.6, MCH 27.8, RDW 18.4 H, MPV 8.6, Gran % 78.7 H, Lymphocytes % 14.4 L, Monocytes % 4.3, Eosinophils % 1.3, Basophils % 1.3, Absolute Granulocytes 5.1, Absolute Lymphocytes 0.9 L, Absolute Monocytes 0.3, Absolute Eosinophils 0.1, Absolute Basophils 0.1, PUBS MCHC 32.8 L 01/26/172214: Urine Color YEL, Urine Clarity TURBD H, Urine pH 6.0, Ur Specific [place] 1.015 , Urine Protein 100 H, Urine Ketones NEG, Urine Nitrite POS H, Urine Bilirubin NEG, Urine Urobilinogen 0.2, Ur Leukocyte Esterase LARGE H, Ur Microscopic SEDIMENT EXAMINED, Urine RBC 1-3, Urine WBC PACKD H, Urine Bacteria PACKD H, Urine Hemoglobin MOD H, Urine Glucose 100 H Initial ED EKG: none Comments: 01/26/2017 9:38:52 PM patient's repeat fingerstick blood glucose was 50, patient treated with an amp of dextrose. Patient remained awake alert without specific complaints during the episode of hypoglycemia. 01/27/2017 12:16:51 AM patient's fingerstick blood glucose level has remained stable over the past 2 determinations. I feel she is now stable for discharge. Departure Departure Disposition: HOME OR SELF CARE Condition: Stable Clinical Impression Primary Impression: Hypoglycemia due to insulin Secondary Impressions: UTI (urinary tract infection) Qualifiers: Urinary tract infection type: site unspecified Hematuria presence: without hematuria Qualified Code: N39.0 - Urinary tract infection, site not specified Referrals: IGNACIO BAR,ELSIE (PCP/Family) Additional Instructions: Hold your evening dose of insulin tonight. You may begin your insulin this morning as usual. Take your fingerstick glucose level before each meal and at bedtime over the next 48 hours. Maintain a consistent nutritional intake. Follow-up with your diabetes doctor on Saturday for reevaluation. Please note you also have a urinary tract infection, take Cipro as prescribed. Notify your primary care doctor of this emergency department visit and treatment plan. Return if any concerns or sudden worsening. Thank you for choosing the [facility] Emergency Department for your care. It was a pleasure to serve you today. Jag Red M.D. [facility] Departure Forms: Customer Survey General Discharge Information Critical Care Note Critical Care Note Critical Care Time: 30-74 min
[2017-01-26 23:13] LABS: ABSOLUTE BASOPHIL COUNT 0.1 /CUMM (0.0-0.2); ABSOLUTE EOSINOPHIL COUNT 0.1 /CUMM (0.0-0.7); ABSOLUTE GRANULOCYTE CT 5.1 /CUMM (1.4-6.5); ABSOLUTE LYMPH COUNT 0.9 /CUMM (1.2-3.4); ABSOLUTE MONOCYTE COUNT 0.3 /CUMM (0.10-0.60); BASOPHIL % 1.3 % (0.0-2.0); EOSINOPHIL % 1.3 % (0-5); GRANULOCYTE % 78.7 % (42.2-75.2); HEMATOCRIT 27.3 % (37-47); MEAN CORPUSCULAR HGB 27.8 PG (27.0-31.0); MEAN CORPUSCULAR HGB CONC 32.8 G/DL (33.0-37.0); MEAN CORPUSCULAR VOLUME 84.6 FL (81.0-99.0); MEAN PLATELET VOLUME 8.6 FL (7.4-10.4); PLATELET COUNT 187 /CUMM (130-400); RBC DISTRIBUTION WIDTH 18.4 % (11.5-14.5); RED BLOOD CELL CT 3.22 /CUMM (4.20-5.40); WHITE BLOOD CELL COUNT 6.5 /CUMM (4.8-10.8)
[2017-01-27] MEDS ORDERED: CIPRO500 M1 PO (00:27)
[2017-01-27 01:51] VITALS: BP 163/74
== END 2017-01-27 02:18 ==
LOC: ERH 20:44
PROVIDERS: Emergency Medicine
DX: N39.0 Urinary tract infection, site not specified (principal); E10.649 Type 1 diabetes mellitus with hypoglycemia without coma
CPT/HCPCS: 81001; 96374

== ENCOUNTER 2017-10-15 13:29 | Emergency (ER) | payer OTHER ==
[~2017-10-15] VITALS: Ht 144.8 cm; Wt 72.6 kg
[~2017-10-15 13:29] MED LIST changes: +CIPRO500 M1 PO
--- NOTE | 2017-10-15 15:06 | RADIOLOGY REPORT ---
EXAMINATION: CHEST 2 VIEWS CLINICAL INFORMATION: Cough. COMPARISON: None. TECHNIQUE: PA and lateral views of the chest were obtained. FINDINGS: The cardiac silhouette is not enlarged. The mediastinal and hilar contours are unremarkable. There are neither pleural effusions nor pneumothoraces. There are no consolidations. There is mild interstitial prominence present throughout both lungs. Mild degenerative changes present within the thoracic spine. There is right greater than left bilateral acromiohumeral distance narrowing. The osseous structures are otherwise unremarkable. IMPRESSION: No consolidations. Mild interstitial prominence present throughout both lungs. This is age indeterminant, though likely chronic.
[2017-10-15 15:49] LABS: ABSOLUTE BASOPHIL COUNT 0 /CUMM (0.0-0.2); ABSOLUTE EOSINOPHIL COUNT 0.1 /CUMM (0.0-0.7); ABSOLUTE GRANULOCYTE CT 5.4 /CUMM (1.4-6.5); ABSOLUTE LYMPH COUNT 1.1 /CUMM (1.2-3.4); ABSOLUTE MONOCYTE COUNT 0.6 /CUMM (0.10-0.60); BASOPHIL % 0.5 % (0.0-2.0); EOSINOPHIL % 1.9 % (0-5); GRANULOCYTE % 74.2 % (42.2-75.2); HEMATOCRIT 30.3 % (37-47); MEAN CORPUSCULAR HGB 30.6 PG (27.0-31.0); MEAN CORPUSCULAR VOLUME 90.3 FL (81.0-99.0); MEAN PLATELET VOLUME 8.6 FL (7.4-10.4); PLATELET COUNT 178 /CUMM (130-400); RBC DISTRIBUTION WIDTH 13.6 % (11.5-14.5); RED BLOOD CELL CT 3.35 /CUMM (4.20-5.40); WHITE BLOOD CELL COUNT 7.3 /CUMM (4.8-10.8)
[2017-10-15 16:37] VITALS: BP 146/80
--- NOTE | 2017-10-15 16:42 | ED GENERAL ADULT ---
History of Present Illness General Chief Complaint: General Adult Stated Complaint: FEVER, COUGH Source: patient, family Exam Limitations: no limitations Vital Signs & Intake/Output Vital Signs & Intake/Output Vital Signs Date Time Temp Pulse Resp B/P B/P Pulse O2 O2 Flow FiO2 Mean Ox Delivery Rate 10/15 1637 98.3 90 18 146/80 98 Room Air 10/15 1438 98 Room Air 10/15 1437 98.3 88 18 179/78 98 Room Air 10/15 1334 97.0 87 18 178/95 99 Room Air Allergies Coded Allergies: No Known Allergies (12/21/16) Reconcile Medications Albuterol Sulfate (Proventil Hfa) 90 MCG HFA.AER.AD 2 PUF INH Q4 cough Amlodipine Besylate 10 MG TABLET 1 TAB PO DAILY HEART (Reported) Aspirin (Aspirin*) 81 MG TAB.CHEW 1 TAB PO DAILY HEART HEALTH (Reported) Atorvastatin Calcium 40 MG TABLET 1 TAB PO QPM CHOLESTEROL (Reported) Azithromycin (Zithromax) 250 MG TABLET 1 DP PO AD bronchitis 2 the first day followed by 1 for days 2-5 Benzonatate 200 MG CAPSULE 1 CAP PO TIDPRN cough Brimonidine Tartrate (Alphagan P) 0.1 % DROPS 1 GTT OPH BID EYE (Reported) Carvedilol 12.5 MG TABLET 1 TAB PO BID HEART (Reported) Ciprofloxacin HCl (Cipro) 500 MG TABLET 1 TAB PO BID URINE/KIDNEY INFECTION Famotidine 40 MG TABLET 1 TAB PO DAILY GI (Reported) Fenofibrate Nanocrystallized (Fenofibrate) 48 MG TABLET 1 TAB PO DAILY CHOLESTEROL (Reported) Ferrous Sulfate 325 MG (65 MG IRON) TABLET 1 TAB PO BID SUPPLEMENT (Reported) Fluconazole (Diflucan) 50 MG TABLET 1 TAB PO DAILY ANTIBIOTIC, INFECTION ( Reported) Insulin Aspart, Recombinant (Novolog Flexpen) 100 UNIT/ML INSULN.PEN 3 U SC TID DIABETES (Reported) Insulin Detemir (Levemir Flextouch) 100 UNIT/ML (3 ML) INSULN.PEN 14 U SC QPM DIABETES (Reported) Multivit-Min/FA/Lycopen/Lutein (Centrum Silver Tablet) 0.4 MG-300 MCG-250 MCG TABLET 1 TAB PO DAILY VITAMIN SUPPORT (Reported) Tramadol HCl 50 MG TABLET 1 TAB PO Q8P PRN Severe pain Trazodone HCl 50 MG TABLET 1 TAB PO QPM SLEEP (Reported) Triage Note: PT TO ED FOR COLD LIKE S/S X 1 DAY. Triage Nurses Notes Reviewed? yes Onset: Abrupt Duration: week(s): (1), constant Timing: recent history Injury Environment: home HPI: 72-year-old female comes into the emergency room for a cough and fever this been going on for the past week. She denies any chest pain. She denies any shortness of breath. Denies any other associated symptoms. Nothing seems to make the symptoms better or worse. She comes in for further evaluation. (Juanpablo Goodwin) Past History Travel History Traveled to [place] past 21 day No Medical History Any Pertinent Medical History? 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 No (Juanpablo Goodwin) Review of Systems Review of Systems Constitutional: Reports: no symptoms. EENTM: Reports: no symptoms. Respiratory: Reports: see HPI. Cardiovascular: Reports: no symptoms. GI: Reports: no symptoms. Genitourinary: Reports: no symptoms. Musculoskeletal: Reports: no symptoms. Skin: Reports: no symptoms. Neurological/Psychological: Reports: no symptoms. Hematologic/Endocrine: Reports: no symptoms. Immunologic/Allergic: Reports: no symptoms. All Other Systems: Reviewed and Negative (Juanpablo Goodwin) Physical Exam Physical Exam General Appearance: well developed/nourished, no apparent distress, alert, awake Head: atraumatic, normal appearance Eyes: Bilateral: normal appearance, EOMI. Ears, Nose, Throat: normal ENT inspection, hearing grossly normal Neck: normal inspection Respiratory: normal breath sounds, no respiratory distress Cardiovascular: regular rate/rhythm Gastrointestinal: soft Back: normal inspection Extremities: normal inspection Neurologic/Psych: awake, alert, oriented x 3, normal gait Skin: intact, normal color Core Measures ACS in differential dx? No CVA/TIA Diagnosis: No Sepsis Present: No Sepsis Focused Exam Completed? No (Juanpablo Goodwin) Progress Differential Diagnoses I considered the following diagnoses in my evaluation of the patient: Bronchitis, pneumonia, upper respiratory infection, MT, Plan of Care: Orders Procedure Date/time Status URINALYSIS 10/15 143 Complete TROPONIN LEVEL 10/15 143 Complete COMPREHENSIVE METABOLIC PANEL 10/15 143 Complete CBC WITHOUT DIFFERENTIAL 10/15 1438 Complete EKG 10/15 143 Active RAPID VIRAL INFLUENZA A 10/15 1335 Complete Laboratory Tests 10/15/17 1604: Urine Color YEL, Urine Clarity CLEAR, Urine pH 6.0, Ur Specific [place] >= 1.030 , Urine Protein >=300 H, Urine Ketones NEG, Urine Nitrite NEG, Urine Bilirubin NEG, Urine Urobilinogen 0.2, Ur Leukocyte Esterase NEG, Ur Microscopic SEDIMENT EXAMINED, Urine RBC 3-5, Urine WBC RARE, Ur Epithelial Cells FEW, Urine Bacteria FEW H, Urine Mucus RARE, Urine Hemoglobin SMALL H, Urine Glucose NEG 10/15/17 1537: Anion Gap 10, Estimated GFR 44 L, BUN/Creatinine Ratio 20.8, Glucose 140 H, Calcium 9.4, Total Bilirubin 0.2, AST 20, ALT 28, Alkaline Phosphatase 77, Troponin I < 0.01, Total Protein 6.0 L, Albumin 3.1 L, Globulin 2.9, Albumin/ Globulin Ratio 1.1, CBC w Diff NO MAN DIFF REQ, RBC 3.35 L, MCV 90.3, MCH 30.6, MCHC 34.0, RDW 13.6, MPV 8.6, Gran % 74.2, Lymphocytes % 15.3 L, Monocytes % 8.1, Eosinophils % 1.9, Basophils % 0.5, Absolute Granulocytes 5.4, Absolute Lymphocytes 1.1 L, Absolute Monocytes 0.6, Absolute Eosinophils 0.1, Absolute Basophils 0 Microbiology 10/15 1336 NASOPHARYN: Influenza Virus A & B Rapid Smear - COMP Diagnostic Imaging: Viewed by Me: Radiology Read. Discussed w/RAD: Radiology Read. Radiology Impression: PATIENT: GENA BEAR PRESENT AGE: 72 PATIENT ACCOUNT NO: [id number] : 44 LOCATION: [facility] ORDERING PHYSICIAN: Juanpablo VICENTE SERVICE DATE: 10/15/17 EXAM TYPE: RAD - XRY-CHEST XRAY, TWO VIEWS EXAMINATION: CHEST 2 VIEWS CLINICAL INFORMATION: Cough. COMPARISON: None. TECHNIQUE: PA and lateral views of the chest were obtained. FINDINGS: The cardiac silhouette is not enlarged. The mediastinal and hilar contours are unremarkable. There are neither pleural effusions nor pneumothoraces. There are no consolidations. There is mild interstitial prominence present throughout both lungs. Mild degenerative changes present within the thoracic spine. There is right greater than left bilateral acromiohumeral distance narrowing. The osseous structures are otherwise unremarkable. IMPRESSION: No consolidations. Mild interstitial prominence present throughout both lungs. This is age indeterminant, though likely chronic. DICTATED BY: Duane Diehl MD DATE/TIME DICTATED:10/15/171499 RN POOL:LEONARDO DATE/TIME TRANSCRIBED:10/15/171499 CONFIDENTIAL, DO NOT COPY WITHOUT APPROPRIATE AUTHORIZATION. <Electronically signed in Other Vendor System> SIGNED BY: Duane Diehl MD 10/15/17 2433 Initial ED EKG: normal sinus rhythm, rate (79) (Anjel VICENTE,Juanpablo) Departure Departure Disposition: HOME OR SELF CARE Condition: Stable Clinical Impression Primary Impression: Bronchitis Referrals: Juliann BAR,Ashwini Moore (PCP/Family) Additional Instructions: Taking Z-Claudio, Tessalon Perles, and albuterol as prescribed. Follow-up with your PCP. Return if any concerns worsening symptoms. Please go over all results of today's visit with your primary care doctor. Contact your primary care doctor to let them know you were here in the emergency room. There may be nonspecific findings which may not be related to your visit today here in the emergency room but may require further evaluation and chronic monitoring by your primary care doctor. If you had a laceration today the chance of foreign body always remains. You should follow-up with your primary care doctor for recheck in 3-5 days for a wound check. If you had an x-ray done there is a chance that a fracture could have been missed on initial read and you should follow-up with your primary care doctor for repeat x-rays if symptoms persist. If your blood pressure was elevated here in the emergency room please have rechecked by [facility] primary care doctor within the next 48. If you were prescribed a narcotic here in the emergency room or any type of controlled substances you're not allowed to drive while taking this medication or operate any type of heavy machinery. Narcotics can make you feel lightheaded dizziness nausea and can cause constipation. You may need to miner pick a stool softener. Thank you for choosing [facility] emergency room. Please return to the emergency room immediately if you have any other concerns worsening of symptoms. Departure Forms: Customer Survey General Discharge Information Prescriptions: Current Visit Scripts Azithromycin (Zithromax) 1 DP PO AD #6 TAB 2 the first day followed by 1 for days 2-5 Benzonatate 1 CAP PO TIDPRN #30 CAP Albuterol Sulfate (Proventil Hfa) 2 PUF INH Q4 #1 INHAL Comments 10/15/2017 5:23:43 PM Patient clinically looks well. Patient is in no apparent distress. Patient is nontoxic-appearing. Resting comfortably in room. Symptoms are most consistent with bronchitis. (Juanpablo Goodwin) PA/MOTOR SETTER Co-Sign Statement Statement: ED Attending supervision documentation- [x] I saw and evaluated the patient. I have also reviewed all the pertinent lab results and diagnostic results. I agree with the findings and the plan of care as documented in the PA's/MOTOR SETTER's documentation. Patient presents for evaluation of a cough and fever. Physical examination reveals an unremarkable heart and lung examination. [] I have reviewed the ED Record and agree with the PA's/MOTOR SETTER's documentation. [] Additions or exceptions (if any) to the PAs/MOTOR SETTER's note and plan are summarized below: [] (Neda BAR,Jag Moore) Critical Care Note Critical Care Note Critical Care Time: non-applicable (Juanpablo Goodwin)
[2017-10-15] MEDS ORDERED: PROVENTIL HFA6.7 GM INH (16:45)
[2017-10-15] MEDS ORDERED: ZITHROMAX250 M2 PO (16:45)
[2017-10-15] MEDS ORDERED: BENZONATATE200 M1 PO (16:45)
== END 2017-10-15 17:23 ==
LOC: ERH 13:29
PROVIDERS: Physician Assistant Medical
DX: J40 Bronchitis, not specified as acute or chronic (principal); R50.9 Fever, unspecified; I50.9 Heart failure, unspecified
CPT/HCPCS: 71046; 81001; 87804; 87804-59; 93005; 93010